=== PATIENT | male | born 2000 | race American Indian/Alaskan Native ===

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

== ENCOUNTER 2018-05-08 11:57 | Emergency (ER) | payer OTHER ==
[2018-05-08 12:10] VITALS: BP 155/90
[2018-05-08] MEDS ORDERED: KEFLEX PO ONE (15:35)
[2018-05-08] MEDS ORDERED: MOTRIN PO ONE (15:35)
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
[2018-05-08] MEDS ORDERED: NACL 0.9% IR ONE (15:36)
[2018-05-08] MEDS ORDERED: XYLOCAINE 1% MPF 5 mL INFILTRATI ONE (15:36)
[2018-05-08] MEDS ORDERED: BOOSTRIX IM ONE (16:31)
== END 2018-05-08 16:45 | disposition home or self-care (01) ==
LOC: ED 11:57
DX: S61.213A Laceration without foreign body of left middle finger without damage to nail, initial encounter (principal); F12.10 Cannabis abuse, uncomplicated; W45.8XXA Other foreign body or object entering through skin, initial encounter; Y93.89 Activity, other specified; Y99.8 Other external cause status; Y92.89 Other specified places as the place of occurrence of the external cause
CPT/HCPCS: 90715; 96372; 99282